=== PATIENT | male | born 1960 | race Caucasian/White ===

== ENCOUNTER 2023-04-01 14:05 | Observation (INO) | payer OTHER, MEDICARE, SELFPAY ==
[2023-04-01] VITALS (19 sets, daily range): BP systolic 122–167; BP diastolic 57–97; PULSE 80–93; RESP 15–18; TEMP 36.4–36.6; O2SAT 95–100; BMI 29.7; BMI 28.5
--- NOTE | 2023-04-01 07:23 | IR_ITS ---
APPROVED REPORT Patient Location: Outpatient Sql Database Developer: NICHOLE Hope RT (R) PROCEDURES Left heart catheterization Left ventriculogram Selective coronary angiogram Drug-eluting stent deployment to the mid circumflex artery INDICATION Coronary artery disease, Intolerable angina pectoris Informed consent was obtained prior to the procedure. COMPLICATIONS None Estimated Blood Loss: Less than 10 mls TECHNIQUE One percent lidocaine used to anesthetize the right anterior aspect of the wrist. The right radial artery was accessed via the Seldinger technique. A 6 [place]an sheath was placed in the right radial artery. 150 mg magnesium sulfate, 800 mcg of nitroglycerin, 1mg Lidocaine and 5000 U Heparin were given through the arterial sheath. The papa catheter was also used to perform left heart catheterization, left ventriculogram and selective coronary angiogram. At the end the diagnostic angiogram therapeutic heparin was administered giving a therapeutic ACT and a Choice PT extra-support wire was placed down the circumflex artery following engagement of the left main artery with a Poppa catheter. A 2 mm x 22 mm resolute frontier stent was deployed at 18 kuldip reducing the stenosis. Dissection was identified distal to the stenosis therefore an additional 2 mm x 12 mm resolute frontier stent was placed distal to the for stent yet still overlapping it and deployed at 12 kuldip. Repeat angiography demonstrated slow flow down the distal aspect of the circumflex artery. 2 aliquots of nitroglycerin 800 mcg of was introduced into the coronary artery. The guide liner was also advanced in order to provide better angiography and opacification. Eventually a 4 [place] JL 3.5 guide catheter was then inserted for follow-up angiography. At the end the procedure the apparatus was removed the sheath was removed and hemostasis was achieved using TR banding patient was transferred the postop putting in stable condition ANGIOGRAPHIC RESULTS The left main artery Normal The left anterior descending artery Is calcified and has proximal 20% stenoses with mid vessel 20 to 30% stenoses. The LAD is large and wraps the apex The circumflex artery Is nondominant gives rise to 2 obtuse marginal arteries. Both are in the small to moderate range. The second obtuse marginal artery has a proximal 90% concentric stenosis followed by 50% stenosis The right coronary artery Large and dominant with proximal 30% stenoses in the mid vessel 40% concentric stenosis. The SCOTT ventriculogram reveals Preserved 60% The left ventricular end-diastolic pressure 20 mmHg IMPRESSION Severe coronary disease involving a small to medium sized second obtuse marginal artery described above Successful stent placement in the circumflex artery with slow flow distally at the end of the procedure possibly from no reflow phenomenon Preserved ejection fraction Elevated LVEDP PLAN 1. Admit and watch overnight 2. IV fluids 3. LDL less than 55 to be achieved with high intensity statin 4. Control of hypertension 5. Risk factor modification 6. As needed morphine if required for chest pain 7. Cardiac rehabilitation Electronically signed by : Brice Garcia MD 04/01/2023 14:04:28
[2023-04-01 10:11] LABS: Basophils % 0.2 % (0.1-2.0); Eosinophils # 0.3 K/mm3 (0.0-0.4); Eosinophils % 3.7 % (0.1-12.0); Hematocrit 43.6 % (42.0-52.0); Hemoglobin 14.2 g/dL (14.1-18.0); Lymphocytes # 2.6 K/mm3 (0.7-4.5); Lymphocytes % 28.5 % (10-50); Mean Corpuscular HGB Conc 32.6 g/dL (31.8-35.4); Monocytes # 0.7 K/mm3 (0.1-1.0); Monocytes % 7.8 % (1.7-9.3); Neutrophils # 5.5 K/mm3 (1.8-7.8); Neutrophils % 59.8 % (37.0-80.0); Platelet Count 425 K/mm3 (142-424); Red Blood Count 4.59 M/mm3 (4.60-6.20); Red Cell Distribution Width 13.2 % (11.5-17.5); White Blood Count 9.3 K/mm3 (4.8-10.8)
[2023-04-01 10:15] LABS: Chloride 97 mmol/L (98-107); Potassium 3.8 mmoL/L (3.5-5.1); Sodium 138 mmol/L (136-145)
[2023-04-01 10:18] LABS: Anion Gap 18.8 mEq/L (5-15); Blood Urea Nitrogen 33 mg/dl (9-20); Carbon Dioxide 26 mmol/L (22.0-30.0); Creatinine Clearance Estimated 71 mL/min (50-200); Estimated Glomerular Filt Rate 61 ml/min (>60); GFR (African American) 74 ML/MIN (>60)
[2023-04-01 10:19] LABS: Calcium 9.2 mg/dl (8.4-10.2); Glucose 121 mg/dl (74-100)
[2023-04-01 13:50] LABS: CATHL Activated Clotting Time 265 SEC (74-125)
[2023-04-01 13:53] LABS: POC Glucose,Bedside 109 (70-110)
--- NOTE | 2023-04-01 14:22 | PC.NURSE ---
arrived to floor by stretcher from label folder
--- NOTE | 2023-04-01 14:32 | HMH.PHAINT1 ---
Pharmacy Intervention Comments: home medication list verified using list from outpatient pharmacy
[2023-04-01 15:10] LABS: Coronavirus 19, PCR Not Detected (NotDetected); Influenza A, PCR Not Detected (NotDetected); Influenza B, PCR Not Detected (NotDetected)
--- NOTE | 2023-04-01 15:29 | EXP.HP ---
History of Present Illness *Admission Date: 04/01/23 *Reason for visit:: Chief complaint: Chest pain *History of present illness: This is a 62-year-old male that presents to his community director to [facility] for left heart cath. He is accompanied by his Emmie who assists with history. He reports some chest pain and shortness of air so he presented to his regular doctor in [facility]. He underwent a stress test and after his stress test he identified chest pressure and tightness with associated dizziness and lightheadedness lasting several minutes. He rated his pain as greater than 4 on a 1-10 scale. He identified associated fatigue. He reported physical exertion amplified his symptomatology. He underwent left heart cath today with identified obtuse marginal disease with stent deployment. Post cath he reports no chest pain, dyspnea or palpitations. He denies confusion, hallucinations or unusual headaches. He reports no associated nausea, vomiting or diarrhea. He is anticipating the staff to bring him a food tray. [facility] Medical History (Updated 04/01/23 @ 15:47 by Ludin Day MD) Chronically on opiate therapy CKD (chronic kidney disease) Coronary artery disease Degenerative joint disease (DJD) of lumbar spine Diabetes mellitus Hypertension Surgical History (Updated 04/01/23 @ 15:48 by Ludin Day MD) H/O splenectomy History of cholecystectomy History of left heart catheterization History of lumbar spinal fusion S/P left rotator cuff repair Family History Other No significant family history Social History Smoking Status: Never smoker alcohol intake: never current occupational status: employed Travel in the last 8 weeks: [facility] the [facility] adopted: No caregiver/support person: No foster care: No lives independently: No marital status: diet: diabetic well-balanced diet: daily or most days Review of Systems Review of Systems Review of systems:: pertinent systems reviewed and negative unless documented below *Cardiovascular Cardiovascular: Reports chest pain, Reports dyspnea on exertion and Denies palpitations *Respiratory Respiratory: Reports dyspnea on exertion Endocrine Endocrine: Denies palpitations Meds Home Medications and Allergies Home Medications Medication Instructions Recorded Confirmed Type amitriptyline 50 mg tablet 50 mg PO HS Anxiety 03/24/23 04/01/23 History amlodipine 5 mg tablet 5 mg PO DAILY High blood pressure 03/24/23 04/01/23 History celecoxib 200 mg capsule 200 mg PO BID Arthritis 03/24/23 04/01/23 History cyclobenzaprine 10 mg tablet 10 mg PO BID muscle relaxant 03/24/23 04/01/23 History donepezil 5 mg tablet 5 mg PO DAILY alzheimers disease 03/24/23 04/01/23 History gabapentin 400 mg capsule 400 mg PO BID neuropathy 03/24/23 04/01/23 History glimepiride 2 mg tablet 2 mg PO DAILY Diabetes 03/24/23 04/01/23 History hydrocodone 10 mg-acetaminophen 1 tab PO Q8H PRN Pain 03/24/23 04/01/23 History 325 mg tablet metformin 1,000 mg tablet 1,000 mg PO BID Diabetes 03/24/23 04/01/23 History olmesartan 40 1 tab PO DAILY CAD 03/24/23 03/24/23 History mg-hydrochlorothiazide 12.5 mg tablet oxybutynin chloride 5 mg 5 mg PO DAILY overactive bladder 03/24/23 04/01/23 History tablet,extended release 24 hr pantoprazole 40 mg tablet,delayed 40 mg PO BID Acid reflux 03/24/23 04/01/23 History release tizanidine 4 mg tablet 8 mg PO HS muscle relaxant 03/24/23 04/01/23 History venlafaxine 75 mg capsule,extended 75 mg PO BID Depression 03/24/23 04/01/23 History release 24 hr glimepiride 2 mg tablet 1 mg PO HS diabetes 04/01/23 04/01/23 History olmesartan 20 mg tablet 20 mg PO DAILY High blood pressure 04/01/23 04/01/23 History rosuvastatin 10 mg tablet (Crestor) 10 mg PO DAILY Cholesterol 04/01/23 History rosuvastatin 20 mg
[2023-04-01 16:35] LABS: POC Glucose,Bedside 326 (70-110)
--- NOTE | 2023-04-01 19:59 | PC.NURSE ---
Dr. Garcia called about patient status. Report given. Telephone order received for chemistry panel in the morning. Will check orders.
[2023-04-02] VITALS: BP 136/70; PULSE 69; RESP 18; TEMP 36.6; O2SAT 97
[2023-04-02 00:02] LABS: POC Glucose,Bedside 174 (70-110)
[2023-04-02 04:00] VITALS: BP 143/80; PULSE 60; PULSE 66; RESP 18; TEMP 36.5; O2SAT 98; BMI 29.0
--- NOTE | 2023-04-02 04:12 | PC.NURSE ---
Patient is alert and oriented x4. Right radial site is clean, dry and intact. IV is patent and infusing well. No complaints of chest pain. Patient has complained of back pain but is chronic. Lungs remain CTA. No acute events thus far in this RN's shift.
[2023-04-02 06:03] LABS: POC Glucose,Bedside 118 (70-110)
[2023-04-02 06:16] LABS: Basophils % 0.2 % (0.1-2.0); Eosinophils # 0.5 K/mm3 (0.0-0.4); Eosinophils % 3.7 % (0.1-12.0); Hematocrit 39.6 % (42.0-52.0); Lymphocytes # 2.5 K/mm3 (0.7-4.5); Lymphocytes % 18.7 % (10-50); Mean Corpuscular HGB Conc 32.8 g/dL (31.8-35.4); Mean Corpuscular Hemoglobin 31.1 pg (27.0-31.2); Mean Corpuscular Volume 94.9 fl (80-94); Monocytes # 1.1 K/mm3 (0.1-1.0); Monocytes % 8.1 % (1.7-9.3); Neutrophils # 9.3 K/mm3 (1.8-7.8); Neutrophils % 69.3 % (37.0-80.0); Platelet Count 391 K/mm3 (142-424); Red Blood Count 4.17 M/mm3 (4.60-6.20); Red Cell Distribution Width 13.2 % (11.5-17.5); White Blood Count 13.5 K/mm3 (4.8-10.8)
[2023-04-02 06:26] LABS: Alanine Aminotransferase 38 U/L (12-78); Albumin Level 3.5 g/dl (3.5-5.0); Albumin/Globulin Ratio 1.4 (1.1-1.8); Alkaline Phosphatase 67 U/L (38-126); Aspartate Amino Transferase 94 U/L (17-59); Bilirubin,Total 0.4 mg/dl (0.2-1.3); Blood Urea Nitrogen 19 mg/dl (9-20); Calcium 8.3 mg/dl (8.4-10.2); Carbon Dioxide 23 mmol/L (22.0-30.0); Chloride 103 mmol/L (98-107); Creatinine Clearance Estimated 84 mL/min (50-200); Estimated Glomerular Filt Rate 86 ml/min (>60); GFR (African American) 103 ML/MIN (>60); Globulin 2.5 g/dL (1.3-3.2); Glucose 111 mg/dl (74-100); Sodium 137 mmol/L (136-145)
[2023-04-02 06:27] LABS: Magnesium 2.2 mg/dl (1.6-2.3)
[2023-04-02 06:43] LABS: Free T4 (Free Thyroxine) 0.89 ng/dl (0.78-2.19)
[2023-04-02 06:57] LABS: Thyroid Stimulating Hormone 1.76 uIU/mL (0.465-4.68)
[2023-04-02 07:43] VITALS: BP 131/77; PULSE 74; RESP 17; TEMP 36.6; O2SAT 98
[2023-04-02 07:44] LABS: Hemoglobin A1C 8.1 % (4.0-6.0)
[2023-04-02 08:00] VITALS: PULSE 78
--- NOTE | 2023-04-02 09:16 | EXP.DC.SUM ---
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 He is accompanied by his Emmie who assists with history. He reports some chest pain and shortness of air so he presented to his regular doctor in [facility]. He underwent a stress test and after his stress test he identified chest pressure and tightness with associated dizziness and lightheadedness lasting several minutes. He rated his pain as greater than 4 on a 1-10 scale. He identified associated fatigue. He reported physical exertion amplified his symptomatology. He underwent left heart cath today with identified obtuse marginal disease with stent deployment. Post cath he reports no chest pain, dyspnea or palpitations. He denies confusion, hallucinations or unusual headaches. He reports no associated nausea, vomiting or diarrhea. He is anticipating the staff to bring him a food tray. Hospital Course Hospital Course Hospital Course: The patient was admitted to the medical floor with telemetry post heart cath. His laboratory studies and inflammatory markers were trended and identified improvement and stability. He reported no chest pain, palpitations or other symptomatology. He identified improvement and cardiology recommended discharge home to follow-up with his PCP and pipe crew foreman as scheduled. He understands the importance of dual antiplatelet therapy, statin therapy and increase aerobic activity for cardiovascular wellness. He should have routine electrolyte and creatinine evaluations to identify stability. We have recommended that the patient discuss SGLT2 inhibitor therapy with his PCP and avoid routine glimepiride therapy. He should abstain from NSAID use until follow-up with his PCP and repeat BMP evaluation. He will follow-up with his PCP in 1 week and pipe crew foreman as scheduled. Exam Data for Last 24 hours Vital signs and Labs for Last 24 Hours: Temp Pulse Resp BP Pulse Ox 97.8 F 74 17 131/77 98 04/02/23 07:43 04/02/23 07:43 04/02/23 07:43 04/02/23 07:43 04/02/23 07:43 Laboratory Results - last 24 hr 04/01/23 09:50: WBC 9.3, RBC 4.59 L, Hgb 14.2, Hct 43.6, MCV 95.0 H, MCH 31.0, MCHC 32.6, RDW 13.2, Plt Count 425 H, MPV 8.0, Neut % (Auto) 59.8, Lymph % (Auto) 28.5, [place] % (Auto) 7.8, Eos % (Auto) 3.7, Baso % (Auto) 0.2, Neut # (Auto) 5.5, Lymph # (Auto) 2.6, [place] # (Auto) 0.7, Eos # (Auto) 0.3, Baso # (Auto) 0.0 04/01/23 09:50: Sodium 138, Potassium 3.8, Chloride 97 L, Carbon Dioxide 26, Anion Gap 18.8 H, BUN 33 H, Creatinine 1.20, Estimated Creat Clear 71, Estimated GFR 61, Est GFR ( Amer) 74, Glucose 121 H, Calcium 9.2 04/01/23 12:52: Activated Clotting Time 265 H* 04/01/23 13:46: POC Glucose 109 04/01/23 14:45: SARS-CoV-2 (PCR) Not detected, Influenza A Untype (PCR) Not detected, Influenza Type B (PCR) Not detected 04/01/23 16:25: POC Glucose 326 H* 04/01/23 19:49: POC Glucose 174 H 04/02/23 05:56: WBC 13.5 H D, RBC 4.17 L, Hgb 13.0 L, Hct 39.6 L, MCV 94.9 H, MCH 31.1, MCHC 32.8, RDW 13.2, Plt Count 391, MPV 8.0, Neut % (Auto) 69.3, Lymph % (Auto) 18.7, [place] % (Auto) 8.1, Eos % (Auto) 3.7, Baso % (Auto) 0.2, Neut # (Auto) 9.3 H, Lymph # (Auto) 2.5, [place] # (Auto) 1.1 H, Eos # (Auto) 0.5 H, Baso # (Auto) 0.0 04/02/23 05:56: Hemoglobin A1c 8.1 H 04/02/23 05:56: Magnesium 2.2, TSH 1.76 04/02/23 05:56: Free T4 0.89 04/02/23 05:56: Sodium 137, Potassium 4.0, Chloride 103, Carbon Dioxide 23, Anion Gap 15.0, BUN 19 D, Creatinine 0.90 D, Estimated Creat Clear 84, Estimated GFR 86, Est GFR ( Amer) 103 D, Glucose 111 H, Calcium 8.3 L, Total Bilirubin 0.4, AST 94 H, ALT 38, Alkaline Phosphatase 67, Total Protein 6.0 L, Albumin 3.5, Globulin 2.5, Albumin/Globulin Ratio 1.4 04/02/23 05:56: POC Glucose 118 H I & O for Last 24 hours: Intake & Output 03/30/23 03/31/23 04/01/23 04/02/23 23:59 23:59 23:59 23
--- NOTE | 2023-04-02 09:45 | P.CONPHA_ITS ---
PHA Medical Leader Discharge Med Funeral Pre Need Consultant: Tito Lindsey has received discharge medication counseling on the following medications: ASPIRIN (NEW) BRILINTA (NEW) CARVEDILOL (NEW) OLMESARTAN ROSUVASTATIN NEW PRESCRIPTIONS WERE SENT TO [facility]. PATIENT VERBALIZED UNDERSTANDING AND HAD NO QUESTIONS AT THIS TIME. -LAUREN NUGENT, PHUONGD
--- NOTE | 2023-04-05 14:24 | CARE MANAGER ---
Contacted patient related to hospital discharge. He picked up his medications and is aware follow up appointments. LUCIANO Montgomery
== END 2023-04-02 10:00 | disposition home or self-care (01) ==
LOC: 2ND 14:06
PROVIDERS: Internal Medicine; Admitting Provider Family Medicine; Visit Provider Family Medicine
DX: E11.22 Type 2 diabetes mellitus with diabetic chronic kidney disease (principal); E78.5 Hyperlipidemia, unspecified; N18.2 Chronic kidney disease, stage 2 (mild); R53.83 Other fatigue; I25.118 Atherosclerotic heart disease of native coronary artery with other forms of angina pectoris; Z79.899 Other long term (current) drug therapy; Z79.84 Long term (current) use of oral hypoglycemic drugs; I12.9 Hypertensive chronic kidney disease with stage 1 through stage 4 chronic kidney disease, or unspecified chronic kidney disease; Z79.891 Long term (current) use of opiate analgesic; Z20.822 Contact with and (suspected) exposure to COVID-19
CPT/HCPCS: G0378; 36415; 80048; 80053; 82962; 83036; 83735; 84439; 84443; 85025; 85347; 87635; 92928; 93458; 99152; 99153; C1725; C1769; C1876; C9600; C9803; J1644; Q9967; U0003; U0005

== ENCOUNTER → 2023-04-13 12:32 | Outpatient (CLI) | payer OTHER, MEDICARE, SELFPAY ==
[2023-04-13 14:17] LABS: Basophils # 0.1 K/mm3 (0-0.2); Basophils % 0.6 % (0.1-2.0); Eosinophils # 0.3 K/mm3 (0.0-0.4); Eosinophils % 2.5 % (0.1-12.0); Hematocrit 44.1 % (42.0-52.0); Hemoglobin 14.2 g/dL (14.1-18.0); Lymphocytes # 2.1 K/mm3 (0.7-4.5); Lymphocytes % 18.6 % (10-50); Mean Corpuscular HGB Conc 32.2 g/dL (31.8-35.4); Mean Corpuscular Hemoglobin 31.3 pg (27.0-31.2); Mean Corpuscular Volume 97.2 fl (80-94); Mean Platelet Volume 7.8 fl (7.4-10.4); Monocytes # 0.8 K/mm3 (0.1-1.0); Monocytes % 7.4 % (1.7-9.3); Neutrophils # 8.1 K/mm3 (1.8-7.8); Neutrophils % 71.1 % (37.0-80.0); Platelet Count 507 K/mm3 (142-424); Red Blood Count 4.53 M/mm3 (4.60-6.20); Red Cell Distribution Width 13.8 % (11.5-17.5); White Blood Count 11.4 K/mm3 (4.8-10.8)
[2023-04-13 15:37] LABS: Anion Gap 20.4 mEq/L (5-15); Blood Urea Nitrogen 31 mg/dl (9-20); Calcium 9.3 mg/dl (8.4-10.2); Carbon Dioxide 23 mmol/L (22.0-30.0); Chloride 99 mmol/L (98-107); Estimated Glomerular Filt Rate 56 ml/min (>60); GFR (African American) 68 ML/MIN (>60); Glucose 148 mg/dl (74-100); Potassium 5.4 mmoL/L (3.5-5.1); Sodium 137 mmol/L (136-145)
[2023-04-13 15:54] LABS: Triiodothryronine (T3) Uptake 33 % (23.5-40.5)
[2023-04-13 16:08] LABS: Thyroid Stimulating Hormone 2.35 uIU/mL (0.465-4.68)
[2023-04-13 17:38] LABS: Free Thyroxine Index 2.8 ug/dL (5.93-13.13); T4 (Thyroxine) 8.5 ug/dl (5.53-11.0)
== END ==
PROVIDERS: Visit Provider Internal Medicine
DX: I25.10 Atherosclerotic heart disease of native coronary artery without angina pectoris (principal); I10 Essential (primary) hypertension; E13.22 Other specified diabetes mellitus with diabetic chronic kidney disease; N18.9 Chronic kidney disease, unspecified; E78.5 Hyperlipidemia, unspecified; Z79.84 Long term (current) use of oral hypoglycemic drugs
CPT/HCPCS: 36415; 80048; 84436; 84443; 84479; 85025

== ENCOUNTER → 2023-10-12 11:01 | Outpatient (CLI) | payer OTHER, MEDICARE, SELFPAY ==
--- NOTE | 2023-10-12 11:03 | CA_ITS ---
APPROVED REPORT EXAM: Comprehensive 2D, Doppler, and color-flow Echocardiogram Rope Maker: SALIMA Trujillo, RVS Ht: 5 ft 4 in Wt: 177lbs BSA: 1.86 BP: 121/71 mmHg Indications: Pre-op clearance, CKD, CAD, DM, HTN, HLD, Fatigue 2D Dimensions Aortic Root 2.92 cm LA Volume 40.60 mL Left Atrium 3.19 cm LA Volume Index 21.40 mL/m2 (M/F) 16-34 LVOT 2.19 cm (M/F) 1.5-2.5 M-Mode Dimensions RVDd 1.81 cm (0.9-2.6) LA Diam 4.16 cm (1.9-4.0) LVDd 4.86 cm (3.5-5.7) Ao Diam 3.05 cm (2.0-3.7) LVDs 3.02 cm (3.5-5.7) IVSd 0.78 cm (0.6-1.1) PWd 0.96 cm (0.6-1.1) EF (Teich) 67.80% EPSs 0.54 cm FS 37.90% EDV (Teich) 110.70 mL ESV (Teich) 35.60 mL LV Diastology E Decel Time 187.00 (160-240 msec) E/A Ratio 1.08 MED E' 7.00 (< 7 cm/sec) MED A' 12.50 cm/s E'/MED E' Ratio 12.83 (>14) LAT E' 10.20 (<10 cm/sec) LAT A' 11.10 cm/s E/LAT E' Ratio 8.80 (>14) Aortic Valve LVOT Max 101.00 (70-110 cm/s) LVOT VTI 19.95 cm AoV Peak Prasanth. 126.00 (50-130 cm/s) AO Peak GR. 6.30 mmHg AO Mean GR. 3.10 (<5 mmHg) AO VTI 24.89 (18-25 cm) ZOEY (VTI) 3.02 (2.5-4.5 cm2) Mitral Valve MV A Velocity 83.00 (40-130 cm/s) E/A Ratio 1.08 MV Decel. Time 187.00 (160-240 ms) Left Ventricle The left ventricle is normal size. The left ventricular systolic function is normal. The left ventricular ejection fraction is within the normal range. There is normal left ventricular wall thickness. There is normal LV segmental wall motion. The left ventricular diastolic function is normal. LVEF is 60%. Right Ventricle The right ventricle is normal size. The right ventricular systolic function is normal. Atria The left atrium size is normal. The right atrium size is normal. There is no Doppler evidence of interatrial shunt. Aortic Valve Aortic valve opens well. There is no aortic valvular stenosis. No aortic regurgitation is present. Mitral Valve The mitral valve is normal in structure. No evidence of mitral valve stenosis. There is no mitral valve regurgitation noted. Tricuspid Valve The tricuspid valve leaflets are thin and pliable. Trace tricuspid regurgitation. There is insufficient TR jet to estimate RVSP. Pulmonic Valve The pulmonary valve is normal in structure. Trace pulmonary regurgitation. Great Vessels The aortic root is normal in size. The ascending aorta is normal in size. IVC is normal in size and collapses >50% with inspiration. Pericardium There is no pericardial effusion. Other Information Study Quality: Adequate Conclusion Normal biventricular systolic function. No significant valvular stenosis or regurgitation. Electronically signed by : La Garcia MD 10/13/2023 12:10:24
== END ==
PROVIDERS: Visit Provider Nurse Practitioner
DX: Z01.810 Encounter for preprocedural cardiovascular examination (principal); I25.10 Atherosclerotic heart disease of native coronary artery without angina pectoris; E11.22 Type 2 diabetes mellitus with diabetic chronic kidney disease; I12.9 Hypertensive chronic kidney disease with stage 1 through stage 4 chronic kidney disease, or unspecified chronic kidney disease; N18.9 Chronic kidney disease, unspecified; E78.5 Hyperlipidemia, unspecified; Z79.84 Long term (current) use of oral hypoglycemic drugs
CPT/HCPCS: 93306